=== PATIENT | male | born 1955 | race African-American/Black ===

== ENCOUNTER 2020-07-30 08:59 | Inpatient (IN) | payer MEDICARE, MEDICAID ==
[~2020-07-30] VITALS: Ht 182.9 cm; Wt 63.6 kg
[2020-07-30] MEDS ORDERED: DEXT 5%/0.9% NACL 500 ML IV ONE ×2 (09:30→10:00)
[2020-07-30 10:48] LABS: BASOPHILS % 0.4 % (0.0-2.0); EOSINOPHILS % 0.1 % (0.0-5.0); HEMATOCRIT. 30.2 % (42.0-52.0); HEMOGLOBIN. 10.2 g/dL (14.0-18.0); LYMPHOCYTES % 14.5 % (20.0-50.0); MEAN CORPUSCULAR HEMOGLOBIN 34.9 pg (28.0-32.0); MEAN CORPUSCULAR VOLUME 102.9 fL (80.0-94.0); MEAN PLATELET VOLUME 7.7 fl (7.4-10.4); PLATELET 227 x1000/uL (130-400); RED BLOOD CELL COUNT 2.93 mill/uL (4.7-6.1)
[2020-07-30 10:50] LABS: CHLORIDE 98 mEq/L (98-107)
[2020-07-30] MEDS ORDERED: CEFTRIAXONE 2 G PREMIX 50 ML IV ONE (11:30)
[2020-07-30 14:00] VITALS: BP 140/77
[2020-07-30] MEDS: ONDANSETRON HCL 4MG/2ML INJ IV PRN ×2 (15:44→22:57)
[2020-07-30] MEDS: ACETAMINOPHEN 325MG TABLET PO PRN (15:44)
[2020-07-30] MEDS: ENOXAPARIN 40MG/0.4ML SYR SUBCUT SCH (15:45)
[2020-07-30] MEDS ORDERED: MVI, ADULT NO.1 10 ML, FOLIC ACID 1 MG, THIAMINE HCL 100 MG in SODIUM CHLORIDE 0.9% 1,0... IV SCH (17:00)
[2020-07-30 20:00] VITALS: BP 148/70
[2020-07-31] VITALS (9 sets, daily range): BP systolic 114–146; BP diastolic 56–92
[2020-07-31 00:11] LABS: CREATINE KINASE 114 IU/L (39-308)
[2020-07-31 00:12] LABS: CREATINE KINASE MB FRACTION 1.2 ng/mL (0.5-3.6)
[2020-07-31] MEDS: SODIUM CHLORIDE 0.9% 1,000 ML IV SCH ×4 (03:01→23:42)
[2020-07-31 06:09] LABS: HEMATOCRIT. 22.6 % (42.0-52.0); HEMOGLOBIN. 7.6 g/dL (14.0-18.0); MEAN CORPUSCULAR HEMOGLOBIN 34.4 pg (28.0-32.0); MEAN CORPUSCULAR VOLUME 102.7 fL (80.0-94.0); MEAN PLATELET VOLUME 8.2 fl (7.4-10.4); PLATELET 164 x1000/uL (130-400); RED CELL DISTRIBUTION WIDTH 14.9 % (11.6-14.6)
[2020-07-31 06:14] LABS: CHLORIDE 117 mEq/L (98-107)
[2020-07-31 06:24] LABS: CREATINE KINASE 69 IU/L (39-308)
[2020-07-31 06:25] LABS: CREATINE KINASE MB FRACTION < 1.0 ng/mL (0.5-3.6)
[2020-07-31] MEDS: ONDANSETRON HCL 4MG/2ML INJ IV PRN (08:07)
[2020-07-31] MEDS ORDERED: POTASSIUM CHLORIDE 20MEQ TABLET SR PO NR (13:15)
[2020-07-31] MEDS: ENOXAPARIN 40MG/0.4ML SYR SUBCUT SCH (15:15)
[2020-07-31] MEDS: CALCIUM CARBONATE 1250MG TABLET (500MG ELEMENTAL CALCIUM) PO SCH (15:15)
[2020-07-31 16:48] LABS: PLATELET ESTIMATE NORMAL
[2020-07-31 18:52] LABS: TOTAL IRON BINDING CAPACITY 128 ug/dL (250-450)
[2020-07-31] MEDS: ACETAMINOPHEN 325MG TABLET PO PRN (22:22)
[2020-08-01] VITALS (7 sets, daily range): BP systolic 129–148; BP diastolic 79–98
[2020-08-01 07:06] LABS: BASOPHILS % 0.5 % (0.0-2.0); EOSINOPHILS % 1.5 % (0.0-5.0); HEMATOCRIT. 26.4 % (42.0-52.0); HEMOGLOBIN. 8.9 g/dL (14.0-18.0); LYMPHOCYTES % 40.3 % (20.0-50.0); MEAN CORPUSCULAR HEMOGLOBIN 35.2 pg (28.0-32.0); MEAN CORPUSCULAR VOLUME 103.7 fL (80.0-94.0); MEAN PLATELET VOLUME 8.4 fl (7.4-10.4); MONOCYTES % 14.5 % (2.0-8.0); NEUTROPHILS % 43.2 % (40.0-76.0); PLATELET 157 x1000/uL (130-400); RED BLOOD CELL COUNT 2.54 mill/uL (4.7-6.1); RED CELL DISTRIBUTION WIDTH 15.1 % (11.6-14.6)
[2020-08-01] MEDS: CALCIUM CARBONATE 1250MG TABLET (500MG ELEMENTAL CALCIUM) PO SCH (08:43)
[2020-08-01] MEDS: SODIUM CHLORIDE 0.9% 1,000 ML IV SCH ×3 (08:43→20:07)
[2020-08-01 12:34] LABS: CLARITY URINE CLEAR (CLEAR); COLOR URINE YELLOW (YELLOW); KETONES URINE NEGATIVE (NEGATIVE); LEUKOCYTE ESTERASE URINE NEGATIVE (NEGATIVE); NITRITE URINE NEGATIVE (NEGATIVE); OCCULT BLOOD URINE NEGATIVE (NEGATIVE); PH URINE 7.5 (4.5-8.0); PROTEIN URINE NEGATIVE (NEGATIVE); SPECIFIC GRAVITY URINE 1.012 (1.005-1.030); UROBILINOGEN URINE 0.2 E.U./dL (0.2-1.0)
[2020-08-01 13:05] LABS: METHADONE URINE SCREEN NEGATIVE (NEGATIVE); OPIATES URINE SCREEN NEGATIVE (NEGATIVE)
[2020-08-01 13:06] LABS: *BARBITURATES SCREEN URINE NEGATIVE (NEGATIVE); PHENCYCLIDINE URINE SCREEN NEGATIVE (NEGATIVE)
[2020-08-01 13:10] LABS: CANNABINOID URINE SCREEN NEGATIVE (NEGATIVE)
[2020-08-01 13:14] LABS: *AMPHETAMINES SCREEN URINE NEGATIVE (NEGATIVE); *BENZODIAZEPINES SCREEN URINE NEGATIVE (NEGATIVE); *COCAINE SCREEN URINE NEGATIVE (NEGATIVE)
[2020-08-01] MEDS: ACETAMINOPHEN 325MG TABLET PO PRN ×2 (13:20→20:25)
[2020-08-01] MEDS: ENOXAPARIN 40MG/0.4ML SYR SUBCUT SCH (15:19)
[2020-08-02] VITALS (8 sets, daily range): BP systolic 137–154; BP diastolic 64–87
[2020-08-02] MEDS: ACETAMINOPHEN 325MG TABLET PO PRN ×3 (04:20→22:45)
[2020-08-02] MEDS: CALCIUM CARBONATE 1250MG TABLET (500MG ELEMENTAL CALCIUM) PO SCH (09:30)
[2020-08-02] MEDS: HYDROCODONE/ACETAMINOPHEN 5/325MG TABLET PO PRN (09:31)
[2020-08-02] MEDS: ENOXAPARIN 40MG/0.4ML SYR SUBCUT SCH (16:00)
[2020-08-03] VITALS: BP 126/78
[2020-08-03 04:00] VITALS: BP 138/83
[2020-08-03 08:25] VITALS: BP 152/86
[2020-08-03] MEDS: CALCIUM CARBONATE 1250MG TABLET (500MG ELEMENTAL CALCIUM) PO SCH (11:08)
[2020-08-03] MEDS: HYDROCODONE/ACETAMINOPHEN 5/325MG TABLET PO PRN (11:09)
[2020-08-03 12:06] VITALS: BP 136/79
[2020-08-03 13:55] VITALS: BP 136/79
== END 2020-08-03 14:45 | disposition home or self-care (01) | DRG 73 ==
LOC: ER 09:25 → 8WST 11:16 → ENRESERV 12:37
PROVIDERS: ADMIT Internal Medicine; ATTEND Internal Medicine
DX: G90.8 Other disorders of autonomic nervous system (principal); N17.0 Acute kidney failure with tubular necrosis; E87.1 Hypo-osmolality and hyponatremia; E87.2 Acidosis; E86.0 Dehydration; I12.9 Hypertensive chronic kidney disease with stage 1 through stage 4 chronic kidney disease, or unspecified chronic kidney disease; N18.9 Chronic kidney disease, unspecified; E86.1 Hypovolemia; F10.20 Alcohol dependence, uncomplicated; D64.9 Anemia, unspecified; F17.200 Nicotine dependence, unspecified, uncomplicated; M10.9 Gout, unspecified; Z79.899 Other long term (current) drug therapy
CPT/HCPCS: 36415; 70544; 70551; 71045; 80048; 80053; 80305; 80320; 81003; 82140; 82550; 82553; 82728; 83540; 83550; 83605; 83880; 84443; 84484; 85025; 85379; 86850; 86900; 93005; 93306; 93880; 93970; 97162; 97166; 99291; J0696; J1650; J2405; J3411; J3490; J7030; J7040; J7042; J7070; G0480

== ENCOUNTER 2020-12-07 13:21 | Inpatient (IN) | payer MEDICARE, MEDICAID ==
[~2020-12-07] VITALS: Ht 175.3 cm; Wt 64.9 kg
[~2020-12-07 13:21] MED LIST: AMLO5TAB88 PO; FAMO20TA8 MT; GABA-532 PO; HYDR30OI12 TOP; TAMS-11 PO; THIA100T72 PO
[2020-12-07] MEDS ORDERED: SODIUM CHLORIDE 0.9% 1,000 ML IV ONE (14:45)
[2020-12-07 15:17] LABS: BASOPHILS % 0.8 % (0.0-2.0); EOSINOPHILS % 1.4 % (0.0-5.0); HEMATOCRIT. 24.7 % (42.0-52.0); HEMOGLOBIN. 8.2 g/dL (14.0-18.0); MEAN CORPUSCULAR HEMOGLOBIN 33.6 pg (28.0-32.0); MEAN CORPUSCULAR VOLUME 100.8 fL (80.0-94.0); MEAN PLATELET VOLUME 6.8 fl (7.4-10.4); MONOCYTES % 9.2 % (2.0-8.0); NEUTROPHILS % 77.6 % (40.0-76.0); PLATELET 418 x1000/uL (130-400); RED BLOOD CELL COUNT 2.45 mill/uL (4.7-6.1); RED CELL DISTRIBUTION WIDTH 16.4 % (11.6-14.6)
[2020-12-07 15:21] LABS: CHLORIDE 111 mEq/L (98-107)
[2020-12-07 15:29] LABS: CLARITY URINE CLEAR (CLEAR); COLOR URINE YELLOW (YELLOW); KETONES URINE NEGATIVE (NEGATIVE); LEUKOCYTE ESTERASE URINE NEGATIVE (NEGATIVE); NITRITE URINE NEGATIVE (NEGATIVE); OCCULT BLOOD URINE NEGATIVE (NEGATIVE); PH URINE 6.5 (4.5-8.0); PROTEIN URINE NEGATIVE (NEGATIVE); SPECIFIC GRAVITY URINE 1.014 (1.005-1.030); UROBILINOGEN URINE 0.2 E.U./dL (0.2-1.0)
[2020-12-07 15:37] LABS: PROTHROMBIN TIME 10.9 sec (9.6-11.0)
[2020-12-07] MEDS ORDERED: MORPHINE SULFATE 4 MG/ML CPJ (NOT FOR IM USE) IV STA (15:46)
[2020-12-07] MEDS ORDERED: ONDANSETRON HCL 4MG/2ML INJ IV STA (15:46)
[2020-12-07] MEDS ORDERED: CALCIUM GLUCONATE 1,000 MG in DEXT 5% WATER 100 ML IV ONE (16:00)
[2020-12-07] MEDS ORDERED: DEXTROSE 50% WATER 50ML SYRINGE IV ONE (16:00)
[2020-12-07] MEDS ORDERED: CALCIUM GLUCONATE 1GM PREMIX 50 ML IV SCH (16:00)
[2020-12-07] MEDS ORDERED: SODIUM BICARBONATE 8.4% 1 MEQ/ML 50ML SYR IV ONE (16:00)
[2020-12-07] MEDS ORDERED: INSULIN REGULAR (HUMULIN R) 300UNITS/3ML VIAL IV ONE (16:00)
[2020-12-07 18:37] LABS: *AMPHETAMINES SCREEN URINE NEGATIVE (NEGATIVE); *BARBITURATES SCREEN URINE NEGATIVE (NEGATIVE); *BENZODIAZEPINES SCREEN URINE NEGATIVE (NEGATIVE)
[2020-12-07 18:38] LABS: *COCAINE SCREEN URINE NEGATIVE (NEGATIVE); CANNABINOID URINE SCREEN NEGATIVE (NEGATIVE); METHADONE URINE SCREEN NEGATIVE (NEGATIVE); OPIATES URINE SCREEN NEGATIVE (NEGATIVE); PHENCYCLIDINE URINE SCREEN NEGATIVE (NEGATIVE)
[2020-12-08] VITALS (7 sets, daily range): BP systolic 126–154; BP diastolic 61–84
[2020-12-08] MEDS ORDERED: FAMOTIDINE 20MG TABLET PO NR (03:00)
[2020-12-08 03:07] LABS: HEMATOCRIT. 26.8 % (42.0-52.0); MEAN CORPUSCULAR HEMOGLOBIN 33.4 pg (28.0-32.0); MEAN CORPUSCULAR VOLUME 99.6 fL (80.0-94.0); MEAN PLATELET VOLUME 6.6 fl (7.4-10.4); PLATELET 405 x1000/uL (130-400); RED BLOOD CELL COUNT 2.69 mill/uL (4.7-6.1); RED CELL DISTRIBUTION WIDTH 16.4 % (11.6-14.6)
[2020-12-08 03:14] LABS: CHLORIDE 106 mEq/L (98-107)
[2020-12-08 03:21] LABS: LDL CHOLESTEROL 61 mg/dL (5-100)
[2020-12-08 03:22] LABS: HDL CHOLESTEROL 80 mg/dL (40-59)
[2020-12-08 05:03] LABS: NUCLEATED RED BLOOD CELLS 1 /100 WBC
[2020-12-08 05:04] LABS: PLATELET ESTIMATE NORMAL
[2020-12-08] MEDS ORDERED: ALBUTEROL (0.083%) 2.5MG/3ML NEB HHN NR (09:00)
[2020-12-08] MEDS ORDERED: ASPIRIN 81MG TABLET PO SCH (09:00)
[2020-12-08] MEDS: ACETAMINOPHEN WITH CODEINE 300/30MG TABLET PO PRN ×3 (09:28→17:05)
[2020-12-08] MEDS ORDERED: SODIUM POLYSTYRENE SULFONATE 15 G/60 ML BOT PO NR ×2 (10:00→21:00)
[2020-12-08 11:28] LABS: *BARBITURATES SCREEN URINE NEGATIVE (NEGATIVE); *BENZODIAZEPINES SCREEN URINE NEGATIVE (NEGATIVE); *COCAINE SCREEN URINE NEGATIVE (NEGATIVE); METHADONE URINE SCREEN NEGATIVE (NEGATIVE); OPIATES URINE SCREEN PRESUMTIVE POSITIVE (NEGATIVE)
[2020-12-08 11:29] LABS: *AMPHETAMINES SCREEN URINE NEGATIVE (NEGATIVE); CANNABINOID URINE SCREEN NEGATIVE (NEGATIVE); PHENCYCLIDINE URINE SCREEN NEGATIVE (NEGATIVE)
[2020-12-08] MEDS ORDERED: NALOXONE HCL 0.4MG/ML VIAL IV PRN (12:45)
[2020-12-08] MEDS: TAMSULOSIN HCL 0.4MG SR CAPSULE PO SCH (12:49)
[2020-12-08] MEDS: THIAMINE HCL 100MG TABLET PO SCH (12:49)
[2020-12-08] MEDS: AMLODIPINE 5MG TABLET PO SCH (12:49)
[2020-12-08] MEDS ORDERED: MORPHINE SULFATE 2 MG/ML CPJ (NOT FOR IM USE) IV PRN (16:30)
[2020-12-08] MEDS: GABAPENTIN 300MG CAPSULE PO SCH (17:07)
[2020-12-08] MEDS: FAMOTIDINE 20MG TABLET PO SCH (21:10)
[2020-12-09] VITALS: BP 116/84
[2020-12-09] MEDS: HYDROCODONE/ACETAMINOPHEN 5/325MG TABLET PO PRN (00:25)
[2020-12-09 04:00] VITALS: BP 134/78
[2020-12-09 08:00] VITALS: BP 142/80
[2020-12-09 08:10] LABS: BASOPHILS % 1.2 % (0.0-2.0); EOSINOPHILS % 1.5 % (0.0-5.0); HEMATOCRIT. 25.5 % (42.0-52.0); HEMOGLOBIN. 8.6 g/dL (14.0-18.0); LYMPHOCYTES % 21.3 % (20.0-50.0); MEAN CORPUSCULAR HEMOGLOBIN 33.2 pg (28.0-32.0); MEAN CORPUSCULAR VOLUME 99.1 fL (80.0-94.0); MEAN PLATELET VOLUME 6.8 fl (7.4-10.4); MONOCYTES % 14.5 % (2.0-8.0); NEUTROPHILS % 61.5 % (40.0-76.0); PLATELET 341 x1000/uL (130-400); RED BLOOD CELL COUNT 2.58 mill/uL (4.7-6.1); RED CELL DISTRIBUTION WIDTH 16.8 % (11.6-14.6)
[2020-12-09 08:16] LABS: PHOSPHORUS 5.4 mg/dL (2.5-4.9)
[2020-12-09 08:19] LABS: C REACTIVE PROTEIN QUANT 7.9 mg/L (0.0-3.0)
[2020-12-09] MEDS: THIAMINE HCL 100MG TABLET PO SCH (09:05)
[2020-12-09] MEDS: GABAPENTIN 300MG CAPSULE PO SCH ×2 (09:05→16:04)
[2020-12-09] MEDS: HYDROCODONE/ACETAMINOPHEN 10/325MG TABLET PO PRN ×2 (09:05→16:04)
[2020-12-09] MEDS: TAMSULOSIN HCL 0.4MG SR CAPSULE PO SCH (09:06)
[2020-12-09] MEDS: AMLODIPINE 5MG TABLET PO SCH (09:06)
[2020-12-09 09:27] LABS: FERRITIN 120 ng/mL (22-322)
[2020-12-09 09:40] LABS: VITAMIN B12 SERUM 741 pg/mL (211-911)
[2020-12-09 12:00] VITALS: BP 115/74
[2020-12-09 16:00] VITALS: BP 122/77
[2020-12-09] MEDS ORDERED: SODIUM POLYSTYRENE SULFONATE 15 G/60 ML BOT PO NR (16:00)
[2020-12-09] MEDS ORDERED: MAGNESIUM 2 G PREMIX 50 ML IV NR (16:00)
[2020-12-09 20:00] VITALS: BP 133/86
[2020-12-09] MEDS: FAMOTIDINE 20MG TABLET PO SCH (20:42)
[2020-12-09] MEDS: ACETAMINOPHEN WITH CODEINE 300/30MG TABLET PO PRN (20:44)
[2020-12-10] VITALS: BP 135/83
[2020-12-10 04:00] VITALS: BP 151/83
[2020-12-10] MEDS: HYDROCODONE/ACETAMINOPHEN 5/325MG TABLET PO PRN (05:14)
[2020-12-10 06:34] LABS: BASOPHILS % 1.4 % (0.0-2.0); HEMOGLOBIN. 8.7 g/dL (14.0-18.0); LYMPHOCYTES % 32.4 % (20.0-50.0); MEAN CORPUSCULAR HEMOGLOBIN 33.3 pg (28.0-32.0); MEAN CORPUSCULAR VOLUME 99.7 fL (80.0-94.0); MEAN PLATELET VOLUME 7.4 fl (7.4-10.4); NEUTROPHILS % 51.2 % (40.0-76.0); PLATELET 317 x1000/uL (130-400); RED CELL DISTRIBUTION WIDTH 16.5 % (11.6-14.6)
[2020-12-10 06:43] LABS: CHLORIDE 98 mEq/L (98-107)
[2020-12-10 06:48] LABS: AMYLASE 304 IU/L (25-115)
[2020-12-10 06:51] LABS: C REACTIVE PROTEIN QUANT 7.2 mg/L (0.0-3.0)
[2020-12-10 08:00] VITALS: BP 148/79
[2020-12-10] MEDS: TAMSULOSIN HCL 0.4MG SR CAPSULE PO SCH (09:28)
[2020-12-10] MEDS: AMLODIPINE 5MG TABLET PO SCH (09:28)
[2020-12-10] MEDS: GABAPENTIN 300MG CAPSULE PO SCH ×3 (09:28→18:13)
[2020-12-10] MEDS: THIAMINE HCL 100MG TABLET PO SCH (09:28)
[2020-12-10] MEDS: HYDROCODONE/ACETAMINOPHEN 10/325MG TABLET PO PRN ×2 (11:59→18:13)
[2020-12-10] MEDS: SODIUM CHLORIDE 0.9% 1,000 ML IV SCH (11:59)
[2020-12-10 12:00] VITALS: BP 128/77
[2020-12-10 16:00] VITALS: BP 123/71
[2020-12-10 20:00] VITALS: BP 125/78
[2020-12-10] MEDS: FAMOTIDINE 20MG TABLET PO SCH (20:36)
[2020-12-11] VITALS: BP 129/82
[2020-12-11] MEDS: HYDROCODONE/ACETAMINOPHEN 10/325MG TABLET PO PRN ×3 (02:49→16:57)
[2020-12-11] MEDS: SODIUM CHLORIDE 0.9% 1,000 ML IV SCH ×2 (03:32→20:13)
[2020-12-11 04:00] VITALS: BP 136/86
[2020-12-11] MEDS: SODIUM CHLORIDE 45ML SPRAY NS PRN ×3 (06:37→16:56)
[2020-12-11 07:13] LABS: BASOPHILS % 0.9 % (0.0-2.0); EOSINOPHILS % 1.3 % (0.0-5.0); HEMATOCRIT. 23.5 % (42.0-52.0); HEMOGLOBIN. 7.9 g/dL (14.0-18.0); LYMPHOCYTES % 25.2 % (20.0-50.0); MEAN CORPUSCULAR HEMOGLOBIN 33.2 pg (28.0-32.0); MEAN CORPUSCULAR VOLUME 98.9 fL (80.0-94.0); MEAN PLATELET VOLUME 7.5 fl (7.4-10.4); MONOCYTES % 10.6 % (2.0-8.0); PLATELET 260 x1000/uL (130-400); RED BLOOD CELL COUNT 2.37 mill/uL (4.7-6.1); RED CELL DISTRIBUTION WIDTH 16.3 % (11.6-14.6)
[2020-12-11 08:00] VITALS: BP 136/78
[2020-12-11 08:00] LABS: CHLORIDE 98 mEq/L (98-107)
[2020-12-11 08:12] LABS: C REACTIVE PROTEIN QUANT 8.5 mg/L (0.0-3.0)
[2020-12-11] MEDS: GABAPENTIN 300MG CAPSULE PO SCH ×2 (08:16→16:56)
[2020-12-11] MEDS: AMLODIPINE 5MG TABLET PO SCH (08:16)
[2020-12-11] MEDS: TAMSULOSIN HCL 0.4MG SR CAPSULE PO SCH (08:17)
[2020-12-11] MEDS: THIAMINE HCL 100MG TABLET PO SCH (08:17)
[2020-12-11 12:00] VITALS: BP 134/76
[2020-12-11] MEDS: ACETAMINOPHEN WITH CODEINE 300/30MG TABLET PO PRN ×2 (15:17→20:13)
[2020-12-11 16:50] VITALS: BP 129/74
[2020-12-11 20:00] VITALS: BP 128/83
[2020-12-11] MEDS: FAMOTIDINE 20MG TABLET PO SCH (20:13)
[2020-12-12] VITALS (7 sets, daily range): BP systolic 90–137; BP diastolic 63–80
[2020-12-12] MEDS: HYDROCODONE/ACETAMINOPHEN 10/325MG TABLET PO PRN ×3 (00:49→20:13)
[2020-12-12] MEDS: SODIUM CHLORIDE 45ML SPRAY NS PRN ×2 (00:49→06:26)
[2020-12-12] MEDS: ACETAMINOPHEN WITH CODEINE 300/30MG TABLET PO PRN (06:20)
[2020-12-12 06:30] LABS: BASOPHILS % 0.7 % (0.0-2.0); EOSINOPHILS % 2.8 % (0.0-5.0); HEMATOCRIT. 25.3 % (42.0-52.0); HEMOGLOBIN. 8.4 g/dL (14.0-18.0); LYMPHOCYTES % 34.2 % (20.0-50.0); MEAN CORPUSCULAR VOLUME 99.1 fL (80.0-94.0); MEAN PLATELET VOLUME 7.1 fl (7.4-10.4); NEUTROPHILS % 52.3 % (40.0-76.0); PLATELET 265 x1000/uL (130-400); RED BLOOD CELL COUNT 2.55 mill/uL (4.7-6.1); RED CELL DISTRIBUTION WIDTH 16.2 % (11.6-14.6)
[2020-12-12 07:21] LABS: CHLORIDE 99 mEq/L (98-107)
[2020-12-12] MEDS: THIAMINE HCL 100MG TABLET PO SCH (08:00)
[2020-12-12] MEDS: TAMSULOSIN HCL 0.4MG SR CAPSULE PO SCH (08:00)
[2020-12-12] MEDS: GABAPENTIN 300MG CAPSULE PO SCH ×2 (08:01→17:15)
[2020-12-12] MEDS: AMLODIPINE 5MG TABLET PO SCH (08:01)
[2020-12-12] MEDS: SODIUM CHLORIDE 0.9% 1,000 ML IV SCH (13:02)
[2020-12-12] MEDS: FERROUS SULFATE 325MG TABLET PO SCH (17:15)
[2020-12-12] MEDS: FAMOTIDINE 20MG TABLET PO SCH (20:12)
[2020-12-12] MEDS: HYDROCODONE/ACETAMINOPHEN 5/325MG TABLET PO PRN (22:22)
[2020-12-13] VITALS (7 sets, daily range): BP systolic 125–149; BP diastolic 52–86
[2020-12-13] MEDS: SODIUM CHLORIDE 0.9% 1,000 ML IV SCH ×2 (04:57→20:06)
[2020-12-13] MEDS: TAMSULOSIN HCL 0.4MG SR CAPSULE PO SCH (08:09)
[2020-12-13] MEDS: THIAMINE HCL 100MG TABLET PO SCH (08:09)
[2020-12-13] MEDS: GABAPENTIN 300MG CAPSULE PO SCH ×2 (08:09→18:23)
[2020-12-13] MEDS: AMLODIPINE 5MG TABLET PO SCH (08:09)
[2020-12-13] MEDS: FERROUS SULFATE 325MG TABLET PO SCH ×3 (08:09→18:23)
[2020-12-13 09:16] LABS: BASOPHILS % 0.7 % (0.0-2.0); EOSINOPHILS % 2.3 % (0.0-5.0); HEMATOCRIT. 23.5 % (42.0-52.0); HEMOGLOBIN. 7.9 g/dL (14.0-18.0); LYMPHOCYTES % 24.8 % (20.0-50.0); MEAN CORPUSCULAR HEMOGLOBIN 33.5 pg (28.0-32.0); MEAN PLATELET VOLUME 7.2 fl (7.4-10.4); MONOCYTES % 12.1 % (2.0-8.0); NEUTROPHILS % 60.1 % (40.0-76.0); PLATELET 256 x1000/uL (130-400); RED BLOOD CELL COUNT 2.37 mill/uL (4.7-6.1); RED CELL DISTRIBUTION WIDTH 16.2 % (11.6-14.6)
[2020-12-13 09:24] LABS: CHLORIDE 98 mEq/L (98-107)
[2020-12-13 09:34] LABS: AMYLASE 150 IU/L (25-115)
[2020-12-13] MEDS ORDERED: SODIUM POLYSTYRENE SULFONATE 15 G/60 ML BOT PO SCH (11:00)
[2020-12-13] MEDS: HYDROCODONE/ACETAMINOPHEN 10/325MG TABLET PO PRN (15:33)
[2020-12-13] MEDS: ACETAMINOPHEN 325MG TABLET PO PRN (18:24)
[2020-12-13 19:09] LABS: OVA & PARASITE EXAM Final report (.)
[2020-12-13] MEDS: FAMOTIDINE 20MG TABLET PO SCH (20:06)
[2020-12-14 00:05] VITALS: BP 128/81
[2020-12-14] MEDS: HYDROCODONE/ACETAMINOPHEN 10/325MG TABLET PO PRN ×3 (01:16→16:18)
[2020-12-14 04:00] VITALS: BP 135/75
[2020-12-14 07:15] LABS: CHLORIDE 98 mEq/L (98-107)
[2020-12-14 07:20] LABS: BASOPHILS % 0.5 % (0.0-2.0); EOSINOPHILS % 1.8 % (0.0-5.0); HEMATOCRIT. 23.6 % (42.0-52.0); HEMOGLOBIN. 8.2 g/dL (14.0-18.0); LYMPHOCYTES % 30.9 % (20.0-50.0); MEAN CORPUSCULAR HEMOGLOBIN 33.4 pg (28.0-32.0); MEAN CORPUSCULAR VOLUME 96.5 fL (80.0-94.0); MEAN PLATELET VOLUME 7.4 fl (7.4-10.4); MONOCYTES % 11.4 % (2.0-8.0); NEUTROPHILS % 55.4 % (40.0-76.0); PLATELET 247 x1000/uL (130-400); RED BLOOD CELL COUNT 2.44 mill/uL (4.7-6.1); RED CELL DISTRIBUTION WIDTH 15.5 % (11.6-14.6)
[2020-12-14 08:00] VITALS: BP 131/81
[2020-12-14] MEDS: AMLODIPINE 5MG TABLET PO SCH (08:46)
[2020-12-14] MEDS: TAMSULOSIN HCL 0.4MG SR CAPSULE PO SCH (08:46)
[2020-12-14] MEDS: FERROUS SULFATE 325MG TABLET PO SCH ×3 (08:47→17:10)
[2020-12-14] MEDS: THIAMINE HCL 100MG TABLET PO SCH (08:47)
[2020-12-14] MEDS: GABAPENTIN 300MG CAPSULE PO SCH ×2 (08:47→16:19)
[2020-12-14] MEDS: ASPIRIN 81MG TABLET PO SCH (12:42)
[2020-12-14 16:00] VITALS: BP 122/82
[2020-12-14 20:00] VITALS: BP 118/72
[2020-12-14] MEDS: FAMOTIDINE 20MG TABLET PO SCH (20:09)
[2020-12-15 00:05] VITALS: BP 113/77
[2020-12-15] MEDS: HYDROCODONE/ACETAMINOPHEN 10/325MG TABLET PO PRN ×2 (00:06→16:42)
[2020-12-15 04:00] VITALS: BP 121/69
[2020-12-15 05:47] LABS: HEMATOCRIT. 23.9 % (42.0-52.0); HEMOGLOBIN. 8.2 g/dL (14.0-18.0); MEAN CORPUSCULAR HEMOGLOBIN 33.3 pg (28.0-32.0); MEAN CORPUSCULAR VOLUME 96.6 fL (80.0-94.0); MEAN PLATELET VOLUME 7.6 fl (7.4-10.4); PLATELET 248 x1000/uL (130-400); RED BLOOD CELL COUNT 2.47 mill/uL (4.7-6.1)
[2020-12-15 05:53] LABS: CHLORIDE 93 mEq/L (98-107)
[2020-12-15 07:39] VITALS: BP 119/84
[2020-12-15] MEDS: ASPIRIN 81MG TABLET PO SCH (08:35)
[2020-12-15] MEDS: AMLODIPINE 5MG TABLET PO SCH (08:35)
[2020-12-15] MEDS: TAMSULOSIN HCL 0.4MG SR CAPSULE PO SCH (08:36)
[2020-12-15] MEDS: THIAMINE HCL 100MG TABLET PO SCH (08:36)
[2020-12-15] MEDS: FERROUS SULFATE 325MG TABLET PO SCH ×3 (08:37→16:42)
[2020-12-15] MEDS: GABAPENTIN 300MG CAPSULE PO SCH ×2 (08:39→16:42)
[2020-12-15 11:32] LABS: PLATELET ESTIMATE NORMAL
[2020-12-15 11:56] VITALS: BP 118/75
[2020-12-15 16:00] VITALS: BP 120/78
[2020-12-15 20:00] VITALS: BP 122/72
[2020-12-15] MEDS: FAMOTIDINE 20MG TABLET PO SCH (20:34)
[2020-12-15] MEDS: ACETAMINOPHEN 325MG TABLET PO PRN (20:44)
[2020-12-16] VITALS (8 sets, daily range): BP systolic 106–131; BP diastolic 63–78
[2020-12-16 08:28] LABS: HEMATOCRIT. 25.1 % (42.0-52.0); HEMOGLOBIN. 8.6 g/dL (14.0-18.0); MEAN CORPUSCULAR HEMOGLOBIN 33.1 pg (28.0-32.0); MEAN CORPUSCULAR VOLUME 96.9 fL (80.0-94.0); PLATELET 278 x1000/uL (130-400); RED BLOOD CELL COUNT 2.59 mill/uL (4.7-6.1); RED CELL DISTRIBUTION WIDTH 16.2 % (11.6-14.6)
[2020-12-16] MEDS: FERROUS SULFATE 325MG TABLET PO SCH ×3 (08:48→17:26)
[2020-12-16] MEDS: THIAMINE HCL 100MG TABLET PO SCH (08:48)
[2020-12-16] MEDS: ASPIRIN 81MG TABLET PO SCH (08:48)
[2020-12-16] MEDS: ACETAMINOPHEN 325MG TABLET PO PRN (08:49)
[2020-12-16] MEDS: AMLODIPINE 5MG TABLET PO SCH (08:49)
[2020-12-16] MEDS: GABAPENTIN 300MG CAPSULE PO SCH ×2 (08:50→17:26)
[2020-12-16] MEDS: TAMSULOSIN HCL 0.4MG SR CAPSULE PO SCH (08:50)
[2020-12-16 09:00] LABS: CHLORIDE 93 mEq/L (98-107)
[2020-12-16] MEDS: SODIUM CHLORIDE 0.9% 1,000 ML IV SCH (10:44)
[2020-12-16 18:41] LABS: PLATELET ESTIMATE NORMAL
[2020-12-16] MEDS: HYDROCODONE/ACETAMINOPHEN 10/325MG TABLET PO PRN (19:09)
[2020-12-16] MEDS: FAMOTIDINE 20MG TABLET PO SCH (20:42)
[2020-12-17] MEDS: HYDROCODONE/ACETAMINOPHEN 10/325MG TABLET PO PRN ×3 (03:15→23:10)
[2020-12-17 04:00] VITALS: BP 118/77
[2020-12-17 06:14] LABS: HEMATOCRIT. 24.8 % (42.0-52.0); HEMOGLOBIN. 8.6 g/dL (14.0-18.0); MEAN CORPUSCULAR HEMOGLOBIN 33.3 pg (28.0-32.0); MEAN CORPUSCULAR VOLUME 96.1 fL (80.0-94.0); MEAN PLATELET VOLUME 7.8 fl (7.4-10.4); PLATELET 310 x1000/uL (130-400); RED BLOOD CELL COUNT 2.58 mill/uL (4.7-6.1); RED CELL DISTRIBUTION WIDTH 16.1 % (11.6-14.6)
[2020-12-17 06:43] LABS: CHLORIDE 94 mEq/L (98-107)
[2020-12-17] MEDS: SODIUM CHLORIDE 0.9% 1,000 ML IV SCH (06:53)
[2020-12-17 08:00] VITALS: BP 117/79
[2020-12-17] MEDS: TAMSULOSIN HCL 0.4MG SR CAPSULE PO SCH (08:21)
[2020-12-17] MEDS: GABAPENTIN 300MG CAPSULE PO SCH ×2 (08:21→17:10)
[2020-12-17] MEDS: FERROUS SULFATE 325MG TABLET PO SCH ×3 (08:21→17:10)
[2020-12-17] MEDS: THIAMINE HCL 100MG TABLET PO SCH (08:21)
[2020-12-17] MEDS: AMLODIPINE 5MG TABLET PO SCH (08:21)
[2020-12-17] MEDS: ASPIRIN 81MG TABLET PO SCH (08:21)
[2020-12-17 12:00] VITALS: BP 130/85
[2020-12-17 16:00] VITALS: BP 118/74
[2020-12-17 20:00] VITALS: BP 126/81
[2020-12-17 22:15] LABS: PLATELET ESTIMATE NORMAL
[2020-12-17] MEDS: FAMOTIDINE 20MG TABLET PO SCH (22:20)
[2020-12-18] VITALS: BP 120/77
[2020-12-18] MEDS: SODIUM CHLORIDE 0.9% 1,000 ML IV SCH (03:51)
[2020-12-18 04:00] VITALS: BP 133/81
[2020-12-18 08:00] VITALS: BP 143/82
[2020-12-18] MEDS: FERROUS SULFATE 325MG TABLET PO SCH ×2 (08:13→13:05)
[2020-12-18] MEDS: ASPIRIN 81MG TABLET PO SCH (08:13)
[2020-12-18] MEDS: THIAMINE HCL 100MG TABLET PO SCH (08:13)
[2020-12-18] MEDS: AMLODIPINE 5MG TABLET PO SCH (08:14)
[2020-12-18] MEDS: GABAPENTIN 300MG CAPSULE PO SCH (08:14)
[2020-12-18] MEDS: TAMSULOSIN HCL 0.4MG SR CAPSULE PO SCH (08:14)
[2020-12-18 12:00] VITALS: BP 124/82
[2020-12-18] MEDS: HYDROCODONE/ACETAMINOPHEN 10/325MG TABLET PO PRN (12:28)
[2020-12-18 15:12] VITALS: BP 124/82
[2020-12-18 16:00] VITALS: BP 106/71
== END 2020-12-18 16:25 | disposition home health service (06) | DRG 177 ==
LOC: ER 13:21 → MICUSO 17:12 → 6WST 21:50 → 7WST 12-08 17:18
PROVIDERS: ADMIT Internal Medicine; ATTEND Internal Medicine
DX: U07.1 COVID-19 (principal); N17.0 Acute kidney failure with tubular necrosis; K86.1 Other chronic pancreatitis; E87.1 Hypo-osmolality and hyponatremia; E46 Unspecified protein-calorie malnutrition; K29.20 Alcoholic gastritis without bleeding; K76.0 Fatty (change of) liver, not elsewhere classified; E87.5 Hyperkalemia; D53.9 Nutritional anemia, unspecified; F10.10 Alcohol abuse, uncomplicated; K52.9 Noninfective gastroenteritis and colitis, unspecified; N40.0 Benign prostatic hyperplasia without lower urinary tract symptoms; E83.42 Hypomagnesemia; N18.2 Chronic kidney disease, stage 2 (mild); I12.9 Hypertensive chronic kidney disease with stage 1 through stage 4 chronic kidney disease, or unspecified chronic kidney disease; M10.9 Gout, unspecified; D47.3 Essential (hemorrhagic) thrombocythemia; M54.5 Low back pain; Z68.21 Body mass index [BMI] 21.0-21.9, adult
CPT/HCPCS: 36415; 71045; 72100; 74176; 80048; 80053; 80061; 80076; 80305; 81003; 82150; 82270; 82607; 82728; 83540; 83550; 83735; 83880; 83930; 84100; 84132; 84484; 85025; 85044; 86140; 87015; 87045; 87177; 87209; 87426; 87427; 87449; 87493; 89055; 93005; 93970; 97162; 97535; 99285; A6261; C1893; J0610; J1815; J2270; J2405; J3475; J3490; J7030; J7040; J7060; U0003; U0005

== ENCOUNTER 2020-12-23 09:29 | Inpatient (IN) | payer MEDICARE, MEDICAID ==
[~2020-12-23] VITALS: Ht 170.2 cm; Wt 69.9 kg
[2020-12-23] MEDS ORDERED: KETOROLAC 30MG/ML VIAL IV STA (09:38)
[2020-12-23 10:19] LABS: EOSINOPHILS % 0.3 % (0.0-5.0); HEMATOCRIT. 25.3 % (42.0-52.0); HEMOGLOBIN. 8.5 g/dL (14.0-18.0); LYMPHOCYTES % 11.8 % (20.0-50.0); MEAN CORPUSCULAR HEMOGLOBIN 32.3 pg (28.0-32.0); MEAN CORPUSCULAR VOLUME 96.5 fL (80.0-94.0); MONOCYTES % 14.1 % (2.0-8.0); NEUTROPHILS % 72.8 % (40.0-76.0); PLATELET 564 x1000/uL (130-400); RED BLOOD CELL COUNT 2.62 mill/uL (4.7-6.1)
[2020-12-23 10:28] LABS: CHLORIDE 101 mEq/L (98-107)
[2020-12-23 11:40] LABS: CLARITY URINE CLEAR (CLEAR); COLOR URINE YELLOW (YELLOW); KETONES URINE NEGATIVE (NEGATIVE); LEUKOCYTE ESTERASE URINE NEGATIVE (NEGATIVE); NITRITE URINE NEGATIVE (NEGATIVE); OCCULT BLOOD URINE NEGATIVE (NEGATIVE); PROTEIN URINE NEGATIVE (NEGATIVE); SPECIFIC GRAVITY URINE 1.016 (1.005-1.030); UROBILINOGEN URINE 0.2 E.U./dL (0.2-1.0)
[2020-12-23] MEDS ORDERED: ACETAMINOPHEN WITH CODEINE 300/30MG TABLET PO ONE (12:15)
[2020-12-23] MEDS ORDERED: CLONIDINE 0.1MG TABLET PO PRN (15:50)
[2020-12-23] MEDS: HYDROCODONE/ACETAMINOPHEN 5/325MG TABLET PO PRN ×2 (17:16→21:55)
[2020-12-23 17:48] VITALS: BP 118/72
[2020-12-23 20:00] VITALS: BP 118/65
[2020-12-24] VITALS: BP 119/71
[2020-12-24] MEDS: HYDROCODONE/ACETAMINOPHEN 5/325MG TABLET PO PRN ×3 (02:22→21:30)
[2020-12-24 04:00] VITALS: BP 117/73
[2020-12-24] MEDS: ACETAMINOPHEN 325MG TABLET PO PRN (05:13)
[2020-12-24 06:46] LABS: HEMATOCRIT. 22.7 % (42.0-52.0); HEMOGLOBIN. 8.1 g/dL (14.0-18.0); MEAN CORPUSCULAR HEMOGLOBIN 33.8 pg (28.0-32.0); MEAN CORPUSCULAR VOLUME 94.9 fL (80.0-94.0); MEAN PLATELET VOLUME 7.2 fl (7.4-10.4); PLATELET 537 x1000/uL (130-400); RED BLOOD CELL COUNT 2.39 mill/uL (4.7-6.1); RED CELL DISTRIBUTION WIDTH 17.2 % (11.6-14.6)
[2020-12-24 06:51] LABS: CHLORIDE 101 mEq/L (98-107)
[2020-12-24 08:00] VITALS: BP_SYST 120; BP_DIAS 71; BP_DIAS 81
[2020-12-24] MEDS: ENOXAPARIN 40MG/0.4ML SYR SUBCUT SCH (09:12)
[2020-12-24] MEDS ORDERED: GABAPENTIN 300MG CAPSULE PO SCH (10:00)
[2020-12-24] MEDS ORDERED: FAMOTIDINE 20MG TABLET PO SCH (10:15)
[2020-12-24] MEDS: FAMOTIDINE 20MG TABLET PO SCH (11:55)
[2020-12-24] MEDS: THIAMINE HCL 100MG TABLET PO SCH (11:55)
[2020-12-24] MEDS: TAMSULOSIN HCL 0.4MG SR CAPSULE PO SCH (11:55)
[2020-12-24 12:00] VITALS: BP 119/65
[2020-12-24 13:27] LABS: PLATELET ESTIMATE INCREASED
[2020-12-24 16:00] VITALS: BP 124/72
[2020-12-24] MEDS: GABAPENTIN 300MG CAPSULE PO SCH (16:51)
[2020-12-24 20:00] VITALS: BP 113/63
[2020-12-24] MEDS: IBUPROFEN 800MG TABLET PO PRN (20:17)
[2020-12-25] VITALS (7 sets, daily range): BP systolic 120–141; BP diastolic 68–79
[2020-12-25] MEDS: HYDROCODONE/ACETAMINOPHEN 5/325MG TABLET PO PRN ×4 (04:01→23:17)
[2020-12-25 06:19] LABS: CHLORIDE 102 mEq/L (98-107)
[2020-12-25 06:37] LABS: HEMATOCRIT. 21.2 % (42.0-52.0); HEMOGLOBIN. 7.5 g/dL (14.0-18.0); MEAN CORPUSCULAR HEMOGLOBIN 33.4 pg (28.0-32.0); PLATELET 540 x1000/uL (130-400); RED BLOOD CELL COUNT 2.23 mill/uL (4.7-6.1); RED CELL DISTRIBUTION WIDTH 16.7 % (11.6-14.6)
[2020-12-25] MEDS: ENOXAPARIN 40MG/0.4ML SYR SUBCUT SCH (09:07)
[2020-12-25] MEDS: TAMSULOSIN HCL 0.4MG SR CAPSULE PO SCH (09:07)
[2020-12-25] MEDS: FAMOTIDINE 20MG TABLET PO SCH (09:08)
[2020-12-25] MEDS: THIAMINE HCL 100MG TABLET PO SCH (09:08)
[2020-12-25] MEDS: GABAPENTIN 300MG CAPSULE PO SCH ×2 (09:08→16:42)
[2020-12-25 12:29] LABS: PLATELET ESTIMATE INCREASED
[2020-12-25] MEDS: IBUPROFEN 800MG TABLET PO PRN ×2 (12:42→21:25)
[2020-12-25] MEDS: COLCHICINE 0.6MG TABLET PO SCH (12:42)
[2020-12-25] MEDS: INDOMETHACIN 25MG CAPSULE PO SCH ×2 (14:15→21:18)
[2020-12-25] MEDS ORDERED: NALOXONE HCL 0.4MG/ML VIAL IV PRN (18:00)
[2020-12-26] MEDS: HYDROCODONE/ACETAMINOPHEN 5/325MG TABLET PO PRN ×2 (03:30→13:34)
[2020-12-26 03:35] VITALS: BP 146/79
[2020-12-26] MEDS: INDOMETHACIN 25MG CAPSULE PO SCH ×3 (05:49→21:49)
[2020-12-26 08:00] VITALS: BP 125/92
[2020-12-26] MEDS: ENOXAPARIN 40MG/0.4ML SYR SUBCUT SCH (08:28)
[2020-12-26] MEDS: THIAMINE HCL 100MG TABLET PO SCH (08:28)
[2020-12-26] MEDS: GABAPENTIN 300MG CAPSULE PO SCH ×2 (08:28→16:40)
[2020-12-26] MEDS: COLCHICINE 0.6MG TABLET PO SCH (08:28)
[2020-12-26] MEDS: TAMSULOSIN HCL 0.4MG SR CAPSULE PO SCH (08:28)
[2020-12-26] MEDS: IBUPROFEN 800MG TABLET PO PRN ×2 (08:28→16:40)
[2020-12-26] MEDS: FAMOTIDINE 20MG TABLET PO SCH (10:49)
[2020-12-26 12:22] VITALS: BP 127/76
[2020-12-26 15:44] VITALS: BP 126/84
[2020-12-26 20:00] VITALS: BP 118/73
[2020-12-26 20:46] LABS: PROTHROMBIN TIME 10.9 sec (9.6-11.0)
[2020-12-26] MEDS: ACETAMINOPHEN 325MG TABLET PO PRN (21:49)
[2020-12-27] VITALS (7 sets, daily range): BP systolic 119–154; BP diastolic 61–82
[2020-12-27] MEDS: HYDROCODONE/ACETAMINOPHEN 5/325MG TABLET PO PRN ×2 (03:52→18:01)
[2020-12-27] MEDS: INDOMETHACIN 25MG CAPSULE PO SCH ×2 (05:45→21:15)
[2020-12-27 07:15] LABS: HEMATOCRIT. 23.1 % (42.0-52.0); HEMOGLOBIN. 7.8 g/dL (14.0-18.0); MEAN CORPUSCULAR HEMOGLOBIN 32.6 pg (28.0-32.0); MEAN CORPUSCULAR VOLUME 96.3 fL (80.0-94.0); MEAN PLATELET VOLUME 6.8 fl (7.4-10.4); PLATELET 622 x1000/uL (130-400); RED CELL DISTRIBUTION WIDTH 16.1 % (11.6-14.6)
[2020-12-27] MEDS ORDERED: ROPIVACAINE HCL 10MG/ML 20 ML VIAL EPI NR (08:00)
[2020-12-27] MEDS ORDERED: METHYLPREDNISOLONE ACETATE 40MG/ML VIAL IM NR (08:00)
[2020-12-27] MEDS ORDERED: SODIUM BICARBONATE 4% (2.4MEQ) 5ML VIAL IV ONE (08:50)
[2020-12-27] MEDS ORDERED: LIDOCAINE HCL 1% 20ML VIAL (Pyxis) INJ ONE (08:50)
[2020-12-27] MEDS: GABAPENTIN 300MG CAPSULE PO SCH ×2 (10:09→18:01)
[2020-12-27] MEDS: COLCHICINE 0.6MG TABLET PO SCH (10:09)
[2020-12-27] MEDS: FAMOTIDINE 20MG TABLET PO SCH (10:09)
[2020-12-27] MEDS: TAMSULOSIN HCL 0.4MG SR CAPSULE PO SCH (10:10)
[2020-12-27] MEDS: THIAMINE HCL 100MG TABLET PO SCH (10:10)
[2020-12-27 15:11] LABS: PLATELET ESTIMATE INCREASED
[2020-12-27] MEDS: ONDANSETRON HCL 4MG/2ML INJ IV PRN (20:34)
[2020-12-28] VITALS: BP 120/60
[2020-12-28] MEDS: ONDANSETRON HCL 4MG/2ML INJ IV PRN (03:08)
[2020-12-28] MEDS: HYDROCODONE/ACETAMINOPHEN 5/325MG TABLET PO PRN (03:09)
[2020-12-28 04:00] VITALS: BP 132/74
[2020-12-28] MEDS: INDOMETHACIN 25MG CAPSULE PO SCH ×2 (06:10→14:26)
[2020-12-28 08:00] VITALS: BP 131/69
[2020-12-28] MEDS: TAMSULOSIN HCL 0.4MG SR CAPSULE PO SCH (09:25)
[2020-12-28] MEDS: FAMOTIDINE 20MG TABLET PO SCH (09:25)
[2020-12-28] MEDS: THIAMINE HCL 100MG TABLET PO SCH (09:25)
[2020-12-28] MEDS: GABAPENTIN 300MG CAPSULE PO SCH (09:26)
[2020-12-28] MEDS: COLCHICINE 0.6MG TABLET PO SCH (09:26)
[2020-12-28 12:00] VITALS: BP 141/71
[2020-12-28 16:06] VITALS: BP 130/74
== END 2020-12-28 18:08 | disposition home health service (06) | DRG 554 ==
LOC: ER 09:46 → 6WST 13:29 → EDBEDREQ 13:32 → EDBEDREQTM 13:35 → EDBEDREQ 13:35 → ENRESERV 13:47
PROVIDERS: ADMIT Emergency Medicine; ATTEND Emergency Medicine
PROC: 0S9C3ZZ Drainage of Right Knee Joint, Percutaneous Approach (ICD-10-PCS; principal; 2020-12-27)
PROC: 3E0U33Z Introduction of Anti-inflammatory into Joints, Percutaneous Approach (ICD-10-PCS; 2020-12-27)
PROC: 3E0U3BZ Introduction of Anesthetic Agent into Joints, Percutaneous Approach (ICD-10-PCS; 2020-12-27)
DX: M17.0 Bilateral primary osteoarthritis of knee (principal); E87.1 Hypo-osmolality and hyponatremia; N17.9 Acute kidney failure, unspecified; M10.9 Gout, unspecified; Z20.822 Contact with and (suspected) exposure to COVID-19; I12.9 Hypertensive chronic kidney disease with stage 1 through stage 4 chronic kidney disease, or unspecified chronic kidney disease; N18.9 Chronic kidney disease, unspecified; F10.21 Alcohol dependence, in remission; N40.0 Benign prostatic hyperplasia without lower urinary tract symptoms; G62.9 Polyneuropathy, unspecified; Z82.49 Family history of ischemic heart disease and other diseases of the circulatory system; Z87.891 Personal history of nicotine dependence; Z79.899 Other long term (current) drug therapy
CPT/HCPCS: 20610; 20611; 36415; 73560; 80048; 80053; 81003; 84550; 85025; 85651; 86430; 87426; 89060; 93005; 97110; 97116; 97161; 99285; J1030; J1650; J1885; J2405; J2795; J3490

== ENCOUNTER 2021-01-16 06:17 | Inpatient (IN) | payer MEDICARE, MEDICAID ==
[~2021-01-16] VITALS: Ht 167.6 cm; Wt 76.7 kg
[2021-01-16] MEDS ORDERED: ONDANSETRON HCL 4MG/2ML INJ IV STA (06:51)
[2021-01-16] MEDS ORDERED: MORPHINE SULFATE 4 MG/ML CPJ (NOT FOR IM USE) IV STA (06:51)
[2021-01-16] MEDS ORDERED: SODIUM CHLORIDE 0.9% 1,000 ML IV ONE (07:00)
[2021-01-16 07:43] LABS: BASOPHILS % 0.5 % (0.0-2.0); EOSINOPHILS % 0.6 % (0.0-5.0); HEMATOCRIT. 24.3 % (42.0-52.0); HEMOGLOBIN. 7.9 g/dL (14.0-18.0); LYMPHOCYTES % 7.9 % (20.0-50.0); MEAN CORPUSCULAR HEMOGLOBIN 32.5 pg (28.0-32.0); MEAN CORPUSCULAR VOLUME 100.2 fL (80.0-94.0); MEAN PLATELET VOLUME 7.1 fl (7.4-10.4); MONOCYTES % 5.1 % (2.0-8.0); NEUTROPHILS % 85.9 % (40.0-76.0); PLATELET 339 x1000/uL (130-400); RED BLOOD CELL COUNT 2.42 mill/uL (4.7-6.1); RED CELL DISTRIBUTION WIDTH 18.3 % (11.6-14.6)
[2021-01-16 07:51] LABS: PARTIAL THROMBOPLASTIN TIME 29.1 sec (23.4-31.0); PROTHROMBIN TIME 10.9 sec (9.6-11.0)
[2021-01-16] MEDS ORDERED: LIDOCAINE HCL 1% 30ML VIAL (10MG/ML) ONE (09:19)
[2021-01-16] MEDS ORDERED: SODIUM BICARBONATE 4% (2.4MEQ) 5ML VIAL IV ONE (09:19)
[2021-01-16] MEDS ORDERED: MORPHINE SULFATE 10 MG/ML CPJ IV ONE (12:00)
[2021-01-16] MEDS ORDERED: VANCOMYCIN 1 G PREMIX 200 ML IV SCH (13:15)
[2021-01-16] MEDS ORDERED: CLONIDINE 0.1MG TABLET PO PRN (17:00)
[2021-01-16] MEDS ORDERED: DOCUSATE SODIUM 100MG CAPSULE PO PRN (17:00)
[2021-01-16] MEDS ORDERED: GUAIFENESIN 200MG/10ML SUGAR FREE UDC PO PRN (17:00)
[2021-01-16] MEDS ORDERED: ONDANSETRON HCL 4MG/2ML INJ IV PRN (17:00)
[2021-01-16] MEDS: PREDNISONE 20MG TABLET PO SCH (17:41)
[2021-01-16 21:40] VITALS: BP 114/73
[2021-01-16 22:00] VITALS: BP 114/73
[2021-01-16] MEDS: INDOMETHACIN 25MG CAPSULE PO SCH (22:42)
[2021-01-16] MEDS ORDERED: HYDR-4001 PO (23:01)
[2021-01-16] MEDS ORDERED: IBUP-2030 MT (23:01)
[2021-01-16] MEDS ORDERED: TOPUD PO (23:01)
[2021-01-16] MEDS ORDERED: INDO-13 PO (23:01)
[2021-01-17] VITALS: BP 120/72
[2021-01-17] MEDS ORDERED: *PATIENT'S OWN MEDICATION STORAGE XX SCH (03:30)
[2021-01-17 04:00] VITALS: BP 125/67
[2021-01-17] MEDS: INDOMETHACIN 25MG CAPSULE PO SCH ×3 (05:29→21:02)
[2021-01-17 05:48] LABS: HEMATOCRIT. 26.5 % (42.0-52.0); HEMOGLOBIN. 8.7 g/dL (14.0-18.0); MEAN CORPUSCULAR HEMOGLOBIN 32.8 pg (28.0-32.0); MEAN CORPUSCULAR VOLUME 99.7 fL (80.0-94.0); MEAN PLATELET VOLUME 8.7 fl (7.4-10.4); PLATELET 290 x1000/uL (130-400); RED BLOOD CELL COUNT 2.66 mill/uL (4.7-6.1); RED CELL DISTRIBUTION WIDTH 18.2 % (11.6-14.6)
[2021-01-17 06:20] LABS: CHLORIDE 106 mEq/L (98-107)
[2021-01-17 08:00] VITALS: BP 105/78
[2021-01-17] MEDS: PREDNISONE 20MG TABLET PO SCH (08:53)
[2021-01-17] MEDS: ACETAMINOPHEN 325MG TABLET PO PRN ×3 (08:57→21:12)
[2021-01-17] MEDS: AMLODIPINE 10MG TABLET PO SCH (09:00)
[2021-01-17] MEDS ORDERED: SODIUM POLYSTYRENE SULFONATE 15 G/60 ML BOT PO NR (09:00)
[2021-01-17 12:00] VITALS: BP 124/70
[2021-01-17 16:00] VITALS: BP 137/75
[2021-01-17] MEDS: MAGNESIUM/ALUMINUM HYDROXIDE/SIMETHICONE 30ML UDC PO PRN (16:52)
[2021-01-17 17:36] LABS: PLATELET ESTIMATE NORMAL
[2021-01-17 20:00] VITALS: BP 145/68
[2021-01-18] VITALS (7 sets, daily range): BP systolic 129–151; BP diastolic 68–89
[2021-01-18] MEDS: INDOMETHACIN 25MG CAPSULE PO SCH ×3 (05:58→22:01)
[2021-01-18 08:01] LABS: CHLORIDE 107 mEq/L (98-107)
[2021-01-18] MEDS: AMLODIPINE 10MG TABLET PO SCH (09:21)
[2021-01-18] MEDS: PREDNISONE 20MG TABLET PO SCH (09:21)
[2021-01-18] MEDS: ACETAMINOPHEN 325MG TABLET PO PRN (09:22)
[2021-01-18] MEDS: MAGNESIUM/ALUMINUM HYDROXIDE/SIMETHICONE 30ML UDC PO PRN (11:58)
[2021-01-18] MEDS ORDERED: COLC0.6C3 PO (15:16)
[2021-01-18] MEDS ORDERED: ALLO100T PO (15:16)
[2021-01-18] MEDS ORDERED: MEDROL DOSE PACK (15:17)
[2021-01-19] VITALS: BP 151/67
[2021-01-19] MEDS: ACETAMINOPHEN 325MG TABLET PO PRN (00:09)
[2021-01-19 04:00] VITALS: BP 134/83
[2021-01-19] MEDS: INDOMETHACIN 25MG CAPSULE PO SCH ×2 (06:11→14:00)
[2021-01-19 08:00] VITALS: BP 155/92
[2021-01-19] MEDS: AMLODIPINE 10MG TABLET PO SCH (09:17)
[2021-01-19] MEDS: PREDNISONE 20MG TABLET PO SCH (09:17)
[2021-01-19 12:00] VITALS: BP 140/84
== END 2021-01-19 15:20 | disposition home or self-care (01) | DRG 553 ==
LOC: ER 06:17 → 6EST 12:42 → EDBEDREQTM 12:53 → EDBEDREQ 12:53 → ENRESERV 20:41
PROVIDERS: ADMIT Hospitalist; ATTEND Hospitalist
PROC: 0S9C3ZZ Drainage of Right Knee Joint, Percutaneous Approach (ICD-10-PCS; principal; 2021-01-16)
PROC: 2W3QXYZ Immobilization of Right Lower Leg using Other Device (ICD-10-PCS; 2021-01-16)
DX: M10.061 Idiopathic gout, right knee (principal); E43 Unspecified severe protein-calorie malnutrition; M17.11 Unilateral primary osteoarthritis, right knee; E87.5 Hyperkalemia; D63.8 Anemia in other chronic diseases classified elsewhere; N18.9 Chronic kidney disease, unspecified; I12.9 Hypertensive chronic kidney disease with stage 1 through stage 4 chronic kidney disease, or unspecified chronic kidney disease; Z20.822 Contact with and (suspected) exposure to COVID-19; Z82.49 Family history of ischemic heart disease and other diseases of the circulatory system; Z79.899 Other long term (current) drug therapy; Z68.27 Body mass index [BMI] 27.0-27.9, adult
CPT/HCPCS: 20611; 36415; 73562; 80048; 80053; 83605; 84550; 85025; 87426; 89060; 99285; J2270; J2405; J3370; J3490; J7030; J7512

== ENCOUNTER 2021-02-12 21:57 | Inpatient (IN) | payer MEDICARE, MEDICAID ==
[~2021-02-12] VITALS: Ht 175.3 cm; Wt 72.6 kg
[~2021-02-12 21:57] MED LIST changes: +ALLO100T PO; +COLC0.6C3 PO; +HYDR-4001 PO; +IBUP-2030 MT; +INDO-13 PO; +MEDROL DOSE PACK; +TOPUD PO
[2021-02-12] MEDS ORDERED: KETOROLAC 60MG/2ML VIAL IM ONE (22:45)
[2021-02-12] MEDS ORDERED: LIDOCAINE HCL/PF 1% 10 MG/ML 5ML VIAL INFIL ONE (23:30)
[2021-02-13] MEDS ORDERED: CEFAZOLIN 1000MG PREMIX 50 ML IV ONE (00:15)
[2021-02-13] MEDS ORDERED: BACITRACIN ZINC OINT UDPKT TOP ONE (00:30)
[2021-02-13] MEDS ORDERED: SODIUM CHLORIDE 0.9% 1,000 ML IV ONE (00:45)
[2021-02-13] MEDS ORDERED: SODIUM CHLORIDE 0.9% 1000ML BAG (SEPSIS BOLUS) IV ONE (01:00)
[2021-02-13 01:16] LABS: HEMATOCRIT. 29.4 % (42.0-52.0); HEMOGLOBIN. 9.5 g/dL (14.0-18.0); MEAN CORPUSCULAR HEMOGLOBIN 31.7 pg (28.0-32.0); MEAN CORPUSCULAR VOLUME 97.9 fL (80.0-94.0); MEAN PLATELET VOLUME 8.1 fl (7.4-10.4); PLATELET 301 x1000/uL (130-400); RED BLOOD CELL COUNT 3.01 mill/uL (4.7-6.1); RED CELL DISTRIBUTION WIDTH 16.8 % (11.6-14.6)
[2021-02-13 01:20] LABS: INR 1.2; PROTHROMBIN TIME 12.3 sec (9.6-11.0)
[2021-02-13 01:22] LABS: CHLORIDE 111 mEq/L (98-107)
[2021-02-13] MEDS ORDERED: DEXTROSE 50% WATER 50ML SYRINGE IV ONE (01:45)
[2021-02-13] MEDS ORDERED: INSULIN REGULAR (HUMULIN R) 300UNITS/3ML VIAL IV ONE (01:45)
[2021-02-13] MEDS ORDERED: ONDANSETRON HCL 4MG/2ML INJ IV ONE (02:30)
[2021-02-13] MEDS ORDERED: MORPHINE SULFATE 4 MG/ML CPJ (NOT FOR IM USE) IV ONE (02:30)
[2021-02-13] MEDS ORDERED: CEFTRIAXONE 1 G PREMIX 50 ML IV ONE (04:45)
[2021-02-13 05:30] LABS: PLATELET ESTIMATE NORMAL
[2021-02-13] MEDS ORDERED: NALOXONE HCL 0.4 MG/ML 1ML VIAL IV PRN (06:15)
[2021-02-13 10:10] VITALS: BP 133/74
[2021-02-13 12:00] VITALS: BP 127/63
[2021-02-13] MEDS ORDERED: ONDANSETRON HCL 4MG/2ML INJ IV PRN (12:30)
[2021-02-13] MEDS ORDERED: PIPERACILLIN/TAZOBACTAM 3.375 G in DEXTROSE 5% WATER 50 ML IV SCH (14:00)
[2021-02-13] MEDS ORDERED: VANCOMYCIN 1500MG in DEXTROSE 5% WATER 250ML IV SCH (14:00)
[2021-02-13 16:00] VITALS: BP 131/70
[2021-02-13] MEDS: HYDROCODONE/ACETAMINOPHEN 5/325MG TABLET PO PRN (18:14)
[2021-02-13 20:00] VITALS: BP 101/54
[2021-02-13] MEDS: MORPHINE SULFATE 2 MG/ML CPJ (NOT FOR IM USE) IV PRN (21:42)
[2021-02-13 23:37] VITALS: BP 124/54
[2021-02-14 04:00] VITALS: BP 122/67
[2021-02-14] MEDS: MORPHINE SULFATE 2 MG/ML CPJ (NOT FOR IM USE) IV PRN ×3 (04:05→17:12)
[2021-02-14] MEDS: BLOOD SUGAR DIAGNOSTIC STRIP TEST SCH ×2 (06:06→13:45)
[2021-02-14 07:51] VITALS: BP 124/78
[2021-02-14 12:50] VITALS: BP 116/62
[2021-02-14] MEDS: VANCOMYCIN 1 G PREMIX 200 ML IV SCH (13:32)
[2021-02-14] MEDS: ENOXAPARIN 40MG/0.4ML SYR SUBCUT SCH (13:34)
[2021-02-14] MEDS: HYDROCODONE/ACETAMINOPHEN 5/325MG TABLET PO PRN (13:35)
[2021-02-14] MEDS ORDERED: VANCOMYCIN 750 MG PREMIX 150 ML IV SCH (14:00)
[2021-02-14 16:00] VITALS: BP 107/64
[2021-02-14 16:16] LABS: HEMATOCRIT. 25.5 % (42.0-52.0); HEMOGLOBIN. 8.3 g/dL (14.0-18.0); MEAN CORPUSCULAR HEMOGLOBIN 31.3 pg (28.0-32.0); MEAN CORPUSCULAR VOLUME 96.3 fL (80.0-94.0); MEAN PLATELET VOLUME 8.2 fl (7.4-10.4); PLATELET 262 x1000/uL (130-400); RED BLOOD CELL COUNT 2.64 mill/uL (4.7-6.1); RED CELL DISTRIBUTION WIDTH 17.2 % (11.6-14.6)
[2021-02-14 16:44] LABS: PLATELET ESTIMATE NORMAL
[2021-02-14] MEDS: PREDNISONE 20MG TABLET PO SCH (17:11)
[2021-02-15] VITALS: BP 121/67
[2021-02-15] MEDS: MORPHINE SULFATE 2 MG/ML CPJ (NOT FOR IM USE) IV PRN ×3 (00:13→15:31)
[2021-02-15 04:00] VITALS: BP 112/67
[2021-02-15 07:35] LABS: BASOPHILS % 0.3 % (0.0-2.0); EOSINOPHILS % 0.1 % (0.0-5.0); HEMATOCRIT. 25.3 % (42.0-52.0); HEMOGLOBIN. 8.3 g/dL (14.0-18.0); LYMPHOCYTES % 9.6 % (20.0-50.0); MEAN CORPUSCULAR HEMOGLOBIN 31.7 pg (28.0-32.0); MEAN CORPUSCULAR VOLUME 96.2 fL (80.0-94.0); MEAN PLATELET VOLUME 8.2 fl (7.4-10.4); MONOCYTES % 6.4 % (2.0-8.0); NEUTROPHILS % 83.6 % (40.0-76.0); PLATELET 270 x1000/uL (130-400); RED BLOOD CELL COUNT 2.63 mill/uL (4.7-6.1); RED CELL DISTRIBUTION WIDTH 16.9 % (11.6-14.6)
[2021-02-15 08:00] VITALS: BP 125/73
[2021-02-15] MEDS ORDERED: SODIUM POLYSTYRENE SULFONATE 15 G/60 ML BOT PO SCH (08:45)
[2021-02-15] MEDS: PREDNISONE 20MG TABLET PO SCH ×2 (09:51→17:33)
[2021-02-15 12:00] VITALS: BP 114/67
[2021-02-15] MEDS: VANCOMYCIN 1 G PREMIX 200 ML IV SCH (15:29)
[2021-02-15] MEDS: ENOXAPARIN 40MG/0.4ML SYR SUBCUT SCH (15:29)
[2021-02-15 16:00] VITALS: BP 119/74
[2021-02-15 20:00] VITALS: BP 122/73
[2021-02-16] VITALS: BP 131/81
[2021-02-16] MEDS: MORPHINE SULFATE 2 MG/ML CPJ (NOT FOR IM USE) IV PRN ×3 (03:45→21:56)
[2021-02-16 04:00] VITALS: BP 126/68
[2021-02-16 07:41] LABS: CHLORIDE 107 mEq/L (98-107)
[2021-02-16 07:48] LABS: PHOSPHORUS 3.5 mg/dL (2.5-4.9)
[2021-02-16 07:50] LABS: CREATINE KINASE 46 IU/L (39-308)
[2021-02-16 08:00] VITALS: BP 131/69
[2021-02-16 08:11] LABS: HEMATOCRIT. 25.1 % (42.0-52.0); HEMOGLOBIN. 8.3 g/dL (14.0-18.0); MEAN CORPUSCULAR HEMOGLOBIN 31.1 pg (28.0-32.0); MEAN CORPUSCULAR VOLUME 94.6 fL (80.0-94.0); RED BLOOD CELL COUNT 2.65 mill/uL (4.7-6.1); RED CELL DISTRIBUTION WIDTH 16.7 % (11.6-14.6)
[2021-02-16] MEDS: PREDNISONE 20MG TABLET PO SCH ×2 (09:34→17:48)
[2021-02-16 12:00] VITALS: BP 131/80
[2021-02-16 13:46] LABS: PLATELET ESTIMATE NORMAL
[2021-02-16] MEDS: ENOXAPARIN 40MG/0.4ML SYR SUBCUT SCH (14:26)
[2021-02-16] MEDS: VANCOMYCIN 1 G PREMIX 200 ML IV SCH (14:26)
[2021-02-16 16:00] VITALS: BP 118/73
[2021-02-16] MEDS: ACETAMINOPHEN 325MG TABLET PO PRN (17:53)
[2021-02-16 20:00] VITALS: BP 127/76
[2021-02-17] VITALS: BP 120/73
[2021-02-17 04:00] VITALS: BP 130/91
[2021-02-17 06:22] LABS: BASOPHILS % 0.5 % (0.0-2.0); EOSINOPHILS % 0.1 % (0.0-5.0); HEMATOCRIT. 24.1 % (42.0-52.0); HEMOGLOBIN. 8.2 g/dL (14.0-18.0); LYMPHOCYTES % 13.7 % (20.0-50.0); MEAN CORPUSCULAR HEMOGLOBIN 31.9 pg (28.0-32.0); MEAN CORPUSCULAR VOLUME 94.3 fL (80.0-94.0); MEAN PLATELET VOLUME 8.1 fl (7.4-10.4); MONOCYTES % 4.9 % (2.0-8.0); NEUTROPHILS % 80.8 % (40.0-76.0); PLATELET 299 x1000/uL (130-400); RED BLOOD CELL COUNT 2.56 mill/uL (4.7-6.1); RED CELL DISTRIBUTION WIDTH 16.9 % (11.6-14.6)
[2021-02-17 06:38] LABS: PHOSPHORUS 2.8 mg/dL (2.5-4.9)
[2021-02-17] MEDS: MORPHINE SULFATE 2 MG/ML CPJ (NOT FOR IM USE) IV PRN ×2 (06:47→18:49)
[2021-02-17 08:00] VITALS: BP 131/75
[2021-02-17] MEDS: FOLIC ACID 1MG TABLET PO SCH (08:33)
[2021-02-17] MEDS: PREDNISONE 20MG TABLET PO SCH ×2 (08:33→18:32)
[2021-02-17] MEDS: THIAMINE HCL 100MG TABLET PO SCH (08:33)
[2021-02-17] MEDS: HYDROCODONE/ACETAMINOPHEN 5/325MG TABLET PO PRN ×2 (08:34→21:18)
[2021-02-17] MEDS: LIDOCAINE 5% PATCH TOP SCH (10:17)
[2021-02-17 12:00] VITALS: BP 127/71
[2021-02-17] MEDS: VANCOMYCIN 750 MG PREMIX 150 ML IV SCH (14:10)
[2021-02-17] MEDS: ENOXAPARIN 40MG/0.4ML SYR SUBCUT SCH (14:11)
[2021-02-17] MEDS: ACETAMINOPHEN 325MG TABLET PO PRN (14:58)
[2021-02-17 16:00] VITALS: BP 130/64
[2021-02-17 20:00] VITALS: BP 139/86
[2021-02-18] VITALS: BP 133/75
[2021-02-18] MEDS: MORPHINE SULFATE 2 MG/ML CPJ (NOT FOR IM USE) IV PRN (03:26)
[2021-02-18 04:00] VITALS: BP 134/78
[2021-02-18 05:02] LABS: CHLORIDE 105 mEq/L (98-107)
[2021-02-18 05:07] LABS: PHOSPHORUS 2.5 mg/dL (2.5-4.9)
[2021-02-18 05:46] LABS: BASOPHILS % 0.2 % (0.0-2.0); HEMATOCRIT. 24.8 % (42.0-52.0); HEMOGLOBIN. 8.2 g/dL (14.0-18.0); LYMPHOCYTES % 13.6 % (20.0-50.0); MEAN CORPUSCULAR HEMOGLOBIN 31.7 pg (28.0-32.0); MEAN CORPUSCULAR VOLUME 95.4 fL (80.0-94.0); MEAN PLATELET VOLUME 8.2 fl (7.4-10.4); NEUTROPHILS % 80.2 % (40.0-76.0); PLATELET 319 x1000/uL (130-400); RED CELL DISTRIBUTION WIDTH 16.7 % (11.6-14.6)
[2021-02-18 08:00] VITALS: BP 132/98
[2021-02-18] MEDS: PREDNISONE 20MG TABLET PO SCH ×2 (08:53→18:16)
[2021-02-18] MEDS: THIAMINE HCL 100MG TABLET PO SCH (08:53)
[2021-02-18] MEDS: FOLIC ACID 1MG TABLET PO SCH (08:53)
[2021-02-18] MEDS: VANCOMYCIN 750 MG PREMIX 150 ML IV SCH (08:54)
[2021-02-18] MEDS: HYDROCODONE/ACETAMINOPHEN 5/325MG TABLET PO PRN (08:54)
[2021-02-18] MEDS: LIDOCAINE 5% PATCH TOP SCH (08:55)
[2021-02-18 12:00] VITALS: BP 134/78
[2021-02-18] MEDS: ENOXAPARIN 40MG/0.4ML SYR SUBCUT SCH (13:30)
[2021-02-18 16:00] VITALS: BP 120/69
[2021-02-18] MEDS: HYDROCODONE/ACETAMINOPHEN 10/325MG TABLET PO PRN ×2 (18:16→23:54)
[2021-02-18 20:00] VITALS: BP 145/73
[2021-02-19] VITALS (7 sets, daily range): BP systolic 103–142; BP diastolic 50–79
[2021-02-19] MEDS: PREDNISONE 20MG TABLET PO SCH ×2 (09:27→16:50)
[2021-02-19] MEDS: FOLIC ACID 1MG TABLET PO SCH (09:27)
[2021-02-19] MEDS: THIAMINE HCL 100MG TABLET PO SCH (09:27)
[2021-02-19] MEDS: HYDROCODONE/ACETAMINOPHEN 10/325MG TABLET PO PRN ×3 (09:28→20:41)
[2021-02-19] MEDS: LIDOCAINE 5% PATCH TOP SCH (09:45)
[2021-02-19] MEDS: ENOXAPARIN 40MG/0.4ML SYR SUBCUT SCH (13:29)
[2021-02-20] MEDS: HYDROCODONE/ACETAMINOPHEN 10/325MG TABLET PO PRN ×2 (03:35→09:38)
[2021-02-20 03:39] VITALS: BP 137/79
[2021-02-20 06:25] LABS: PHOSPHORUS 2.7 mg/dL (2.5-4.9)
[2021-02-20 06:44] LABS: HEMATOCRIT. 25.1 % (42.0-52.0); HEMOGLOBIN. 8.3 g/dL (14.0-18.0); MEAN CORPUSCULAR HEMOGLOBIN 31.4 pg (28.0-32.0); MEAN CORPUSCULAR VOLUME 94.3 fL (80.0-94.0); MEAN PLATELET VOLUME 8.1 fl (7.4-10.4); PLATELET 437 x1000/uL (130-400); RED BLOOD CELL COUNT 2.66 mill/uL (4.7-6.1); RED CELL DISTRIBUTION WIDTH 16.7 % (11.6-14.6)
[2021-02-20 08:00] VITALS: BP 140/78
[2021-02-20] MEDS: LIDOCAINE 5% PATCH TOP SCH (09:31)
[2021-02-20] MEDS: FOLIC ACID 1MG TABLET PO SCH (09:32)
[2021-02-20] MEDS: THIAMINE HCL 100MG TABLET PO SCH (09:32)
[2021-02-20] MEDS: PREDNISONE 20MG TABLET PO SCH (09:35)
[2021-02-20 12:00] VITALS: BP 140/78
[2021-02-20] MEDS ORDERED: P20 MT (12:03)
[2021-02-20] MEDS ORDERED: HYDR-4009 MT (12:03)
[2021-02-20 12:33] VITALS: BP 144/77
[2021-02-20 13:23] LABS: PLATELET ESTIMATE SLIGHTLY INCREASED
== END 2021-02-20 14:10 | disposition home or self-care (01) | DRG 871 ==
LOC: ER 21:57 → EDBEDREQ 02-13 00:26 → 8WST 02-13 01:32 → EDBEDREQSVC 02-13 01:35 → EDBEDREQ 02-13 01:35 → EDBEDREQTM 02-13 01:35 → ENRESERV 02-13 07:58
PROVIDERS: ADMIT Internal Medicine; ATTEND Internal Medicine
PROC: 0S9C3ZZ Drainage of Right Knee Joint, Percutaneous Approach (ICD-10-PCS; principal; 2021-02-13)
DX: A41.9 Sepsis, unspecified organism (principal); N17.0 Acute kidney failure with tubular necrosis; E44.0 Moderate protein-calorie malnutrition; N17.9 Acute kidney failure, unspecified; E87.1 Hypo-osmolality and hyponatremia; E87.2 Acidosis; L03.115 Cellulitis of right lower limb; M00.9 Pyogenic arthritis, unspecified; E16.2 Hypoglycemia, unspecified; D64.9 Anemia, unspecified; R73.9 Hyperglycemia, unspecified; E87.5 Hyperkalemia; I12.9 Hypertensive chronic kidney disease with stage 1 through stage 4 chronic kidney disease, or unspecified chronic kidney disease; N18.9 Chronic kidney disease, unspecified; F10.21 Alcohol dependence, in remission; G62.9 Polyneuropathy, unspecified; M17.11 Unilateral primary osteoarthritis, right knee; F14.90 Cocaine use, unspecified, uncomplicated; M19.90 Unspecified osteoarthritis, unspecified site; M1A.9XX0 Chronic gout, unspecified, without tophus (tophi); N18.30 Chronic kidney disease, stage 3 unspecified; M25.461 Effusion, right knee; Z79.899 Other long term (current) drug therapy
CPT/HCPCS: 36415; 71045; 73562; 76770; 80048; 80053; 80202; 82550; 82962; 83036; 83605; 83735; 84100; 84550; 85025; 89060; 93005; 93970; 97116; 97162; 97166; 99291; J0690; J0696; J1650; J1815; J1885; J2270; J2405; J2543; J3370; J3490; J7030; J7040; J7060; J7512

== ENCOUNTER 2021-04-27 14:48 | Emergency (ER) | payer MEDICARE, MEDICAID ==
[~2021-04-27] VITALS: Ht 175.3 cm; Wt 70.0 kg
[~2021-04-27 14:48] MED LIST changes: -COLC0.6C3 PO; +HYDR-4009 MT; -INDO-13 PO; +P20 MT
[2021-04-28 01:05] LABS: BASOPHILS % 1.3 % (0.0-2.0); CHLORIDE 101 mEq/L (98-107); HEMATOCRIT. 32.2 % (42.0-52.0); HEMOGLOBIN. 10.5 g/dL (14.0-18.0); LYMPHOCYTES % 54.5 % (20.0-50.0); MEAN CORPUSCULAR HEMOGLOBIN 29.8 pg (28.0-32.0); MEAN CORPUSCULAR VOLUME 91.1 fL (80.0-94.0); MEAN PLATELET VOLUME 7.6 fl (7.4-10.4); MONOCYTES % 8.3 % (2.0-8.0); NEUTROPHILS % 32.9 % (40.0-76.0); PLATELET 410 x1000/uL (130-400); RED BLOOD CELL COUNT 3.53 mill/uL (4.7-6.1); RED CELL DISTRIBUTION WIDTH 17.2 % (11.6-14.6)
[2021-04-28 02:45] VITALS: BP 133/85
== END 2021-04-28 03:07 | disposition home or self-care (01) ==
LOC: ER 14:48
DX: F10.129 Alcohol abuse with intoxication, unspecified (principal); Y90.8 Blood alcohol level of 240 mg/100 ml or more; E87.5 Hyperkalemia; R07.89 Other chest pain
CPT/HCPCS: 36415; 71045; 80053; 83735; 83880; 84484; 85025; 93005; 99285